=== PATIENT | female | born 1930 | race Caucasian/White ===

== ENCOUNTER 2017-02-14 17:39 | Inpatient (IN) | payer MEDICARE, MEDICAID ==
[~2017-02-14] VITALS: Ht 152.4 cm; Wt 41.9 kg
[2017-02-14 19:03] LABS: BASOPHILS % 0.8 % (0.0-2.0); EOSINOPHILS % 2.7 % (0.0-5.0); HEMATOCRIT. 39.9 % (36.0-48.0); HEMOGLOBIN. 13.6 g/dL (12.0-16.0); LYMPHOCYTES % 17.9 % (20.0-50.0); MEAN CORPUSCULAR HEMOGLOBIN 30.8 pg (28.0-32.0); MEAN CORPUSCULAR VOLUME 90.6 fL (81.0-99.0); MEAN PLATELET VOLUME 9.2 fl (7.4-10.4); MONOCYTES % 9.2 % (2.0-8.0); NEUTROPHILS % 69.4 % (40.0-76.0); PLATELET 142 x1000/uL (130-400); RED CELL DISTRIBUTION WIDTH 14.4 % (11.6-14.6)
[2017-02-14 19:03] LABS: CLARITY URINE CLEAR (CLEAR); COLOR URINE YELLOW (YELLOW); GLUCOSE URINE NEGATIVE (NEGATIVE); KETONES URINE NEGATIVE (NEGATIVE); LEUKOCYTE ESTERASE URINE 1+ (NEGATIVE); NITRITE URINE NEGATIVE (NEGATIVE); OCCULT BLOOD URINE NEGATIVE (NEGATIVE); PH URINE 6.5 (4.5-8.0); PROTEIN URINE NEGATIVE (NEGATIVE); SPECIFIC GRAVITY URINE 1.008 (1.005-1.030)
[2017-02-14 19:05] LABS: INR 1.2; PROTHROMBIN TIME 12.3 sec (9.4-11.6)
[2017-02-14 19:08] LABS: CARBON DIOXIDE 33 mEq/L (21-32); CHLORIDE 97 mEq/L (98-107)
[2017-02-14 19:14] LABS: TROPONIN I < 0.02 ng/mL (0.00-0.04)
[2017-02-14] MEDS ORDERED: CEFTRIAXONE 1 G PREMIX 50 ML IV ONE (20:00)
[2017-02-14] MEDS ORDERED: ASPIRIN 81MG TABLET PO ONE (20:00)
[2017-02-14] MEDS ORDERED: SODIUM CHLORIDE 0.9% 1,000 ML IV SCH (20:25)
[2017-02-14 23:26] VITALS: BP 127/68
[2017-02-14 23:44] VITALS: BP 127/68
[2017-02-15] VITALS: BP 127/68
[2017-02-15] MEDS ORDERED: MAGNESIUM/ALUMINUM HYDROXIDE/SIMETHICONE 30ML UDC PO PRN (00:30)
[2017-02-15] MEDS ORDERED: DIPHENHYDRAMINE 50MG/ML VIAL IV PRN (00:30)
[2017-02-15] MEDS ORDERED: ONDANSETRON HCL 4MG/2ML VIAL IV PRN (00:30)
[2017-02-15] MEDS ORDERED: ENOXAPARIN 40MG/0.4ML SYR SUBCUT SCH (00:30)
[2017-02-15] MEDS ORDERED: ACETAMINOPHEN 325MG TABLET PO PRN (00:30)
[2017-02-15 04:00] VITALS: BP 108/55
[2017-02-15] MEDS: SODIUM CHLORIDE 0.9% INJ 3ML FLUSH IVF SCH ×3 (06:11→21:44)
[2017-02-15 07:25] LABS: HDL CHOLESTEROL 68 mg/dL (40-59); LDL CHOLESTEROL 32 mg/dL (5-100); T4 FREE 1.24 ng/dL (0.76-1.46); TROPONIN I < 0.02 ng/mL (0.00-0.04)
[2017-02-15 08:00] VITALS: BP 100/56
[2017-02-15] MEDS: ENOXAPARIN 30MG/0.3ML SYR SUBCUT SCH (08:48)
[2017-02-15 12:00] VITALS: BP 104/49
[2017-02-15 16:00] VITALS: BP 122/70
[2017-02-15 20:00] VITALS: BP 102/53
[2017-02-16] VITALS: BP 99/54
[2017-02-16 04:00] VITALS: BP_SYST 148; BP_SYST 95; BP_DIAS 51; BP_DIAS 83
[2017-02-16] MEDS: SODIUM CHLORIDE 0.9% INJ 3ML FLUSH IVF SCH ×2 (06:33→14:00)
[2017-02-16] MEDS ORDERED: REGADENOSON 0.4 MG/5 ML IV ONE (07:15)
[2017-02-16 08:00] VITALS: BP 118/75
[2017-02-16] MEDS: ENOXAPARIN 30MG/0.3ML SYR SUBCUT SCH (08:29)
[2017-02-16] MEDS ORDERED: ASPIRIN 81MG TABLET PO SCH (09:00)
[2017-02-16 12:00] VITALS: BP 95/39
[2017-02-16 16:00] VITALS: BP 115/65
[2017-02-16 17:31] VITALS: BP 115/65
[2017-02-16] MEDS ORDERED: ATORVASTATIN CALCIUM 20MG TABLET PO SCH (21:00)
== END 2017-02-16 20:30 | disposition home or self-care (01) | DRG 243 ==
LOC: ER 19:57 → 5WST 20:28 → ENRESERV 21:34
PROVIDERS: ADMIT Internal Medicine; ATTEND Internal Medicine
DX: K21.9 Gastro-esophageal reflux disease without esophagitis (principal); I50.32 Chronic diastolic (congestive) heart failure; N39.0 Urinary tract infection, site not specified; R07.89 Other chest pain; I25.2 Old myocardial infarction; I10 Essential (primary) hypertension; I25.10 Atherosclerotic heart disease of native coronary artery without angina pectoris; E78.5 Hyperlipidemia, unspecified; M19.90 Unspecified osteoarthritis, unspecified site; Z90.49 Acquired absence of other specified parts of digestive tract; E87.1 Hypo-osmolality and hyponatremia
CPT/HCPCS: 36415; 70450; 71010; 80053; 80061; 81001; 83880; 84439; 84443; 84484; 85025; 85610; 93005; 93970; 96361; 96365; 99291; J0696; J1650; J7030

== ENCOUNTER 2017-07-02 14:35 | Emergency (ER) | payer MEDICARE, MEDICAID ==
[~2017-07-02] VITALS: Ht 154.9 cm; Wt 50.0 kg
[2017-07-02] MEDS ORDERED: ACETAMINOPHEN 325MG TABLET PO ONE (15:00)
[2017-07-02 15:18] LABS: HEMATOCRIT. 39.6 % (36.0-48.0); HEMOGLOBIN. 13.3 g/dL (12.0-16.0); MEAN CORPUSCULAR HEMOGLOBIN 30.8 pg (28.0-32.0); MEAN PLATELET VOLUME 8.8 fl (7.4-10.4); PLATELET 106 x1000/uL (130-400); RED CELL DISTRIBUTION WIDTH 13.3 % (11.6-14.6)
[2017-07-02 15:19] LABS: CHLORIDE 105 mEq/L (98-107)
[2017-07-02 15:20] LABS: INR 1.1; PROTHROMBIN TIME 11.3 sec (9.4-11.6)
[2017-07-02 15:27] LABS: CARBON DIOXIDE 31 mEq/L (21-32)
[2017-07-02 16:10] LABS: ATYPICAL LYMPHOCYTES 2; PLATELET ESTIMATE DECREASED
[2017-07-02 18:08] LABS: CLARITY URINE CLEAR (CLEAR); COLOR URINE YELLOW (YELLOW); KETONES URINE 1+ (NEGATIVE); LEUKOCYTE ESTERASE URINE NEGATIVE (NEGATIVE); NITRITE URINE NEGATIVE (NEGATIVE); OCCULT BLOOD URINE NEGATIVE (NEGATIVE); PROTEIN URINE 2+ (NEGATIVE); UROBILINOGEN URINE 0.2 E.U./dL (0.2-1.0)
[2017-07-02 19:38] VITALS: BP 129/59
== END 2017-07-02 19:45 | disposition home or self-care (01) ==
LOC: ER 14:46
DX: M25.561 Pain in right knee (principal); M25.562 Pain in left knee; I25.2 Old myocardial infarction; I48.91 Unspecified atrial fibrillation; I25.10 Atherosclerotic heart disease of native coronary artery without angina pectoris; I67.82 Cerebral ischemia; W18.39XA Other fall on same level, initial encounter; Y93.89 Activity, other specified; Y92.89 Other specified places as the place of occurrence of the external cause; Y99.8 Other external cause status
CPT/HCPCS: 36415; 70450; 71045; 73562; 80053; 81001; 84484; 85025; 85610; 93005; 99285

== ENCOUNTER 2019-02-04 05:57 | Inpatient (IN) | payer MEDICARE, MEDICAID ==
[2019-02-04] VITALS (8 sets, daily range): BP systolic 93–121; BP diastolic 55–69
[~2019-02-04] VITALS: Ht 149.9 cm; Wt 46.1 kg
[~2019-02-04 05:57] MED LIST: ALBU6.7H INH; FLUT1DIS3 IH; P50 PO
[2019-02-04] MEDS ORDERED: VANCOMYCIN 1 G PREMIX 200 ML IV ONE (06:30)
[2019-02-04] MEDS ORDERED: PIPERACILLIN/TAZ 3.375G PREMIX 50 ML IV ONE (06:30)
[2019-02-04] MEDS ORDERED: SODIUM CHLORIDE 0.9% 1000ML BAG (SEPSIS BOLUS) IV ONE (06:30)
[2019-02-04] MEDS ORDERED: ACETAMINOPHEN 325MG TABLET PO ONE (06:45)
[2019-02-04 06:50] LABS: BASOPHILS % 0.5 % (0.0-2.0); EOSINOPHILS % 0.2 % (0.0-5.0); HEMATOCRIT. 44.5 % (36.0-48.0); HEMOGLOBIN. 15.1 g/dL (12.0-16.0); LYMPHOCYTES % 19.5 % (20.0-50.0); MEAN CORPUSCULAR HEMOGLOBIN 31.2 pg (28.0-32.0); MEAN CORPUSCULAR VOLUME 91.7 fL (81.0-99.0); MEAN PLATELET VOLUME 9.1 fl (7.4-10.4); MONOCYTES % 4.9 % (2.0-8.0); NEUTROPHILS % 74.9 % (40.0-76.0); PLATELET 135 x1000/uL (130-400); RED BLOOD CELL COUNT 4.85 mill/uL (4.2-5.4); RED CELL DISTRIBUTION WIDTH 13.6 % (11.6-14.6)
[2019-02-04 06:54] LABS: PROTHROMBIN TIME 10.3 sec (9.6-11.0)
[2019-02-04 06:55] LABS: CHLORIDE 102 mEq/L (98-107)
[2019-02-04] MEDS ORDERED: ALBUTEROL (0.083%) 2.5MG/3ML NEB HHN STA (06:59)
[2019-02-04] MEDS ORDERED: METHYLPREDNISOLONE SOD SUCC 125 MG/2 ML VIAL IV STA (06:59)
[2019-02-04] MEDS ORDERED: IPRATROPIUM BROMIDE (0.02%) 0.5MG/2.5ML NEB HHN STA (06:59)
[2019-02-04] MEDS ORDERED: ALBUTEROL (0.5%) 2.5MG/0.5ML NEB HHN ONE (07:12)
[2019-02-04] MEDS ORDERED: DILTIAZEM HCL 5MG/ML 5ML VIAL IV ONE (07:45)
[2019-02-04 08:55] LABS: CLARITY URINE CLEAR (CLEAR); COLOR URINE YELLOW (YELLOW); KETONES URINE 1+ (NEGATIVE); LEUKOCYTE ESTERASE URINE NEGATIVE (NEGATIVE); NITRITE URINE NEGATIVE (NEGATIVE); OCCULT BLOOD URINE TRACE (NEGATIVE); PROTEIN URINE NEGATIVE (NEGATIVE); SPECIFIC GRAVITY URINE 1.015 (1.005-1.030); UROBILINOGEN URINE 0.2 E.U./dL (0.2-1.0)
[2019-02-04] MEDS ORDERED: CLONIDINE 0.1MG TABLET PO PRN (10:30)
[2019-02-04] MEDS ORDERED: MAGNESIUM/ALUMINUM HYDROXIDE/SIMETHICONE 30ML UDC PO PRN (10:30)
[2019-02-04] MEDS ORDERED: DIPHENHYDRAMINE 50MG/ML VIAL IV PRN (10:30)
[2019-02-04] MEDS ORDERED: ONDANSETRON HCL 4MG/2ML INJ IV PRN (10:30)
[2019-02-04] MEDS ORDERED: LORAZEPAM 0.5MG TABLET PO PRN (10:30)
[2019-02-04] MEDS ORDERED: IPRATROPIUM/ALBUTEROL 0.5-3(2.5)MG/3ML NEB HHN PRN (10:30)
[2019-02-04] MEDS ORDERED: POTASSIUM CHLORIDE 20MEQ/PACKET PO NR (11:00)
[2019-02-04] MEDS ORDERED: ENOXAPARIN 40MG/0.4ML SYR SUBCUT SCH (11:00)
[2019-02-04] MEDS ORDERED: LEVOFLOXACIN 500MG PREMIX 100 ML IV SCH (12:00)
[2019-02-04] MEDS: ACETAMINOPHEN 325MG TABLET PO PRN (13:49)
[2019-02-04] MEDS: IPRATROPIUM/ALBUTEROL 0.5-3(2.5)MG/3ML NEB HHN SCH ×2 (14:15→21:21)
[2019-02-04] MEDS: METHYLPREDNISOLONE SOD SUCC 125 MG/2 ML VIAL IV SCH ×2 (14:31→22:04)
[2019-02-04] MEDS: SODIUM CHLORIDE 0.9% INJ 3ML FLUSH IVF SCH ×2 (14:32→22:06)
[2019-02-04] MEDS ORDERED: CYANOCOBALAMIN 1000MCG/ML VIAL IM SCH (15:15)
[2019-02-04] MEDS ORDERED: MAGNESIUM 1 G PREMIX 100 ML IV SCH (17:00)
[2019-02-04] MEDS ORDERED: BENZONATATE 100MG CAPSULE PO PRN (17:45)
[2019-02-05] VITALS (12 sets, daily range): BP systolic 106–128; BP diastolic 49–81
[2019-02-05] MEDS: IPRATROPIUM/ALBUTEROL 0.5-3(2.5)MG/3ML NEB HHN SCH ×4 (02:13→20:35)
[2019-02-05] MEDS: METHYLPREDNISOLONE SOD SUCC 125 MG/2 ML VIAL IV SCH ×3 (05:38→21:13)
[2019-02-05] MEDS: SODIUM CHLORIDE 0.9% INJ 3ML FLUSH IVF SCH ×3 (05:39→21:13)
[2019-02-05 06:27] LABS: HEMOGLOBIN. 11.9 g/dL (12.0-16.0); MEAN CORPUSCULAR HEMOGLOBIN 31.1 pg (28.0-32.0); MEAN CORPUSCULAR VOLUME 91.8 fL (81.0-99.0); PLATELET 102 x1000/uL (130-400); RED BLOOD CELL COUNT 3.81 mill/uL (4.2-5.4); RED CELL DISTRIBUTION WIDTH 13.8 % (11.6-14.6)
[2019-02-05 07:46] LABS: CHLORIDE 109 mEq/L (98-107)
[2019-02-05] MEDS: ENOXAPARIN 30MG/0.3ML SYR SUBCUT SCH (09:00)
[2019-02-05] MEDS: LEVOFLOXACIN 250MG PREMIX 50 ML IV SCH (10:28)
[2019-02-05 14:13] LABS: PLATELET ESTIMATE SLIGHTLY DECREASED
[2019-02-06] VITALS (11 sets, daily range): BP systolic 115–139; BP diastolic 58–77
[2019-02-06] MEDS: IPRATROPIUM/ALBUTEROL 0.5-3(2.5)MG/3ML NEB HHN SCH ×3 (03:01→14:48)
[2019-02-06] MEDS: ACETAMINOPHEN 325MG TABLET PO PRN (03:45)
[2019-02-06] MEDS: SODIUM CHLORIDE 0.9% INJ 3ML FLUSH IVF SCH ×2 (05:24→14:39)
[2019-02-06] MEDS: METHYLPREDNISOLONE SOD SUCC 125 MG/2 ML VIAL IV SCH (05:24)
[2019-02-06] MEDS: ENOXAPARIN 30MG/0.3ML SYR SUBCUT SCH (09:29)
[2019-02-06] MEDS: LEVOFLOXACIN 250MG PREMIX 50 ML IV SCH (11:16)
[2019-02-07] MEDS ORDERED: PREDNISONE 10MG TABLET PO SCH (09:00)
[2019-02-07] MEDS ORDERED: LEVOFLOXACIN 250MG TABLET PO SCH (11:00)
[2019-02-07] MEDS ORDERED: ATENOLOL 25MG TABLET PO SCH (13:00)
== END 2019-02-06 19:15 | DRG 189 ==
LOC: ER 05:57 → 5EST 07:45 → ENRESERV 08:00
PROVIDERS: ADMIT Internal Medicine; ATTEND Internal Medicine
DX: J96.01 Acute respiratory failure with hypoxia (principal); J44.1 Chronic obstructive pulmonary disease with (acute) exacerbation; J84.9 Interstitial pulmonary disease, unspecified; I48.0 Paroxysmal atrial fibrillation; E78.5 Hyperlipidemia, unspecified; F03.90 Unspecified dementia, unspecified severity, without behavioral disturbance, psychotic disturbance, mood disturbance, and anxiety; I10 Essential (primary) hypertension; I25.10 Atherosclerotic heart disease of native coronary artery without angina pectoris; E53.8 Deficiency of other specified B group vitamins; T38.0X5A Adverse effect of glucocorticoids and synthetic analogues, initial encounter; I08.3 Combined rheumatic disorders of mitral, aortic and tricuspid valves; M19.90 Unspecified osteoarthritis, unspecified site; Y92.89 Other specified places as the place of occurrence of the external cause; I25.2 Old myocardial infarction; Z90.49 Acquired absence of other specified parts of digestive tract; Z79.899 Other long term (current) drug therapy; Z79.82 Long term (current) use of aspirin
CPT/HCPCS: 36415; 71045; 80048; 81003; 83605; 83735; 83880; 84145; 84484; 93005; 94640; 99291; J1650; J1956; J2543; J2930; J3370; J3420; J3475; J3490; J7030; J7611; J7620

== ENCOUNTER 2019-02-18 21:17 | Inpatient (IN) | payer MEDICARE, MEDICAID ==
[~2019-02-18] VITALS: Ht 149.9 cm; Wt 43.1 kg
[2019-02-18 20:34] VITALS: BP 138/69
[2019-02-18] MEDS ORDERED: ONDANSETRON HCL 4MG/2ML INJ IV PRN (21:30)
[2019-02-18] MEDS ORDERED: CLONIDINE 0.1MG TABLET PO PRN (21:30)
[2019-02-18] MEDS ORDERED: ACETAMINOPHEN 325MG TABLET PO PRN (21:30)
[2019-02-18] MEDS ORDERED: GUAIFENESIN 200MG/10ML SUGAR FREE UDC PO PRN (21:30)
[2019-02-18] MEDS ORDERED: DIPHENHYDRAMINE 50MG/ML VIAL IV PRN (21:30)
[2019-02-18] MEDS ORDERED: LORAZEPAM 0.5MG TABLET PO PRN (21:30)
[2019-02-18] MEDS ORDERED: MAGNESIUM/ALUMINUM HYDROXIDE/SIMETHICONE 30ML UDC PO PRN (21:30)
[2019-02-18] MEDS ORDERED: IPRATROPIUM/ALBUTEROL 0.5-3(2.5)MG/3ML NEB HHN PRN (21:30)
[2019-02-18 22:18] VITALS: BP 138/69
[2019-02-18] MEDS ORDERED: ATEN-42 PO (22:31)
[2019-02-18] MEDS ORDERED: DIPH25CA83 PO (22:32)
[2019-02-18] MEDS ORDERED: ACET-2853 PO (22:33)
[2019-02-18] MEDS ORDERED: BENZ100C86 PO (22:34)
[2019-02-18] MEDS ORDERED: CLON0.1T PO (22:36)
[2019-02-18] MEDS ORDERED: IPRA3AMP9 HHN (22:37)
[2019-02-18 23:16] LABS: BASOPHILS % 0.4 % (0.0-2.0); EOSINOPHILS % 0.5 % (0.0-5.0); HEMATOCRIT. 35.5 % (36.0-48.0); HEMOGLOBIN. 12.3 g/dL (12.0-16.0); LYMPHOCYTES % 9.1 % (20.0-50.0); MEAN CORPUSCULAR HEMOGLOBIN 31.8 pg (28.0-32.0); MEAN CORPUSCULAR VOLUME 91.8 fL (81.0-99.0); MEAN PLATELET VOLUME 8.3 fl (7.4-10.4); MONOCYTES % 5.2 % (2.0-8.0); NEUTROPHILS % 84.8 % (40.0-76.0); PLATELET 141 x1000/uL (130-400); RED BLOOD CELL COUNT 3.87 mill/uL (4.2-5.4); RED CELL DISTRIBUTION WIDTH 14.2 % (11.6-14.6)
[2019-02-18 23:31] LABS: CHLORIDE 109 mEq/L (98-107)
[2019-02-19] VITALS: BP 146/70
[2019-02-19 00:07] LABS: VITAMIN B12 SERUM 875 pg/mL (211-911)
[2019-02-19] MEDS: IPRATROPIUM/ALBUTEROL 0.5-3(2.5)MG/3ML NEB HHN SCH ×3 (01:26→16:19)
[2019-02-19 04:00] VITALS: BP 131/74
[2019-02-19] MEDS: SODIUM CHLORIDE 0.9% INJ 3ML FLUSH IVF SCH ×2 (05:50→14:14)
[2019-02-19 06:37] LABS: CLARITY URINE CLEAR (CLEAR); COLOR URINE YELLOW (YELLOW); KETONES URINE NEGATIVE (NEGATIVE); LEUKOCYTE ESTERASE URINE TRACE (NEGATIVE); NITRITE URINE NEGATIVE (NEGATIVE); OCCULT BLOOD URINE NEGATIVE (NEGATIVE); PROTEIN URINE NEGATIVE (NEGATIVE)
[2019-02-19 08:00] VITALS: BP 152/71
[2019-02-19] MEDS: ATENOLOL 25MG TABLET PO SCH (08:56)
[2019-02-19 12:00] VITALS: BP 110/48
[2019-02-19 16:00] VITALS: BP 104/56
[2019-02-19 20:00] VITALS: BP_SYST 108; BP_SYST 113; BP_DIAS 43; BP_DIAS 71
[2019-02-20] VITALS (7 sets, daily range): BP systolic 107–147; BP diastolic 48–85
[2019-02-20] MEDS: IPRATROPIUM/ALBUTEROL 0.5-3(2.5)MG/3ML NEB HHN SCH ×4 (00:53→19:57)
[2019-02-20] MEDS: SODIUM CHLORIDE 0.9% INJ 3ML FLUSH IVF SCH ×4 (06:08→22:22)
[2019-02-20] MEDS: ATENOLOL 25MG TABLET PO SCH (09:14)
[2019-02-21] VITALS: BP 126/60
[2019-02-21 04:00] VITALS: BP 122/78
[2019-02-21] MEDS: IPRATROPIUM/ALBUTEROL 0.5-3(2.5)MG/3ML NEB HHN SCH ×3 (04:18→15:59)
[2019-02-21] MEDS: SODIUM CHLORIDE 0.9% INJ 3ML FLUSH IVF SCH ×2 (07:04→13:24)
[2019-02-21 07:05] LABS: CHLORIDE 108 mEq/L (98-107)
[2019-02-21 07:07] LABS: BASOPHILS % 0.8 % (0.0-2.0); EOSINOPHILS % 2.8 % (0.0-5.0); HEMATOCRIT. 39.1 % (36.0-48.0); HEMOGLOBIN. 13.2 g/dL (12.0-16.0); LYMPHOCYTES % 22.7 % (20.0-50.0); MEAN CORPUSCULAR HEMOGLOBIN 31.3 pg (28.0-32.0); MEAN CORPUSCULAR VOLUME 92.6 fL (81.0-99.0); MEAN PLATELET VOLUME 8.5 fl (7.4-10.4); MONOCYTES % 8.2 % (2.0-8.0); NEUTROPHILS % 65.5 % (40.0-76.0); PLATELET 151 x1000/uL (130-400); RED BLOOD CELL COUNT 4.23 mill/uL (4.2-5.4); RED CELL DISTRIBUTION WIDTH 14.5 % (11.6-14.6)
[2019-02-21 07:11] LABS: PHOSPHORUS 3.2 mg/dL (2.5-4.9)
[2019-02-21 07:14] LABS: T4 FREE 1.13 ng/dL (0.76-1.46)
[2019-02-21 08:00] VITALS: BP 120/56
[2019-02-21] MEDS ORDERED: ATENOLOL 25MG TABLET PO SCH (09:00)
[2019-02-21 12:00] VITALS: BP 114/45
[2019-02-21 16:00] VITALS: BP 104/45
[2019-02-21 20:00] VITALS: BP 113/56
== END 2019-02-21 21:55 | DRG 74 ==
LOC: 5WST 21:17
PROVIDERS: ADMIT Internal Medicine; ATTEND Internal Medicine
DX: G90.8 Other disorders of autonomic nervous system (principal); N39.0 Urinary tract infection, site not specified; Z68.1 Body mass index [BMI] 19.9 or less, adult; E44.0 Moderate protein-calorie malnutrition; R62.7 Adult failure to thrive; F03.90 Unspecified dementia, unspecified severity, without behavioral disturbance, psychotic disturbance, mood disturbance, and anxiety; I10 Essential (primary) hypertension; I25.10 Atherosclerotic heart disease of native coronary artery without angina pectoris; I48.0 Paroxysmal atrial fibrillation; J44.9 Chronic obstructive pulmonary disease, unspecified; M19.90 Unspecified osteoarthritis, unspecified site; E53.8 Deficiency of other specified B group vitamins; Z90.49 Acquired absence of other specified parts of digestive tract
CPT/HCPCS: 36415; 71045; 81003; 82607; 83735; 84100; 84439; 84443; 93005; 94640; J7620

== ENCOUNTER 2019-05-07 01:44 | Emergency (ER) | payer MEDICARE, MEDICAID ==
[~2019-05-07] VITALS: Ht 137.2 cm; Wt 40.0 kg
[~2019-05-07 01:44] MED LIST changes: +ACET-2853 PO; -ALBU6.7H INH; +ATEN-42 PO; +BENZ100C86 PO; +CLON0.1T PO; +DIPH25CA83 PO; -FLUT1DIS3 IH; +IPRA3AMP9 HHN; -P50 PO
[2019-05-07] MEDS ORDERED: SODIUM CHLORIDE 0.9% 1,000 ML IV ONE (02:07)
[2019-05-07] MEDS ORDERED: ONDANSETRON HCL 4MG/2ML INJ IV STA (02:07)
[2019-05-07] MEDS ORDERED: MORPHINE SULFATE 4 MG/ML CPJ (NOT FOR IM USE) IV STA (02:07)
[2019-05-07 02:51] LABS: CHLORIDE 105 mEq/L (98-107)
[2019-05-07 02:53] LABS: BASOPHILS % 1.1 % (0.0-2.0); EOSINOPHILS % 3.9 % (0.0-5.0); HEMATOCRIT. 40.7 % (36.0-48.0); HEMOGLOBIN. 13.8 g/dL (12.0-16.0); LYMPHOCYTES % 22.7 % (20.0-50.0); MEAN CORPUSCULAR HEMOGLOBIN 31.2 pg (28.0-32.0); MEAN CORPUSCULAR VOLUME 91.9 fL (81.0-99.0); MEAN PLATELET VOLUME 8.9 fl (7.4-10.4); MONOCYTES % 8.6 % (2.0-8.0); NEUTROPHILS % 63.7 % (40.0-76.0); PLATELET 146 x1000/uL (130-400); RED BLOOD CELL COUNT 4.43 mill/uL (4.2-5.4); RED CELL DISTRIBUTION WIDTH 13.4 % (11.6-14.6)
[2019-05-07 05:11] LABS: CLARITY URINE CLEAR (CLEAR); COLOR URINE YELLOW (YELLOW); KETONES URINE NEGATIVE (NEGATIVE); LEUKOCYTE ESTERASE URINE TRACE (NEGATIVE); NITRITE URINE NEGATIVE (NEGATIVE); OCCULT BLOOD URINE NEGATIVE (NEGATIVE); PROTEIN URINE NEGATIVE (NEGATIVE); SPECIFIC GRAVITY URINE 1.013 (1.005-1.030)
[2019-05-07 08:35] VITALS: BP 132/58
== END 2019-05-07 08:39 | disposition home or self-care (01) ==
LOC: ER 01:44
DX: S30.1XXA Contusion of abdominal wall, initial encounter (principal); W18.39XA Other fall on same level, initial encounter; Y93.89 Activity, other specified; Y92.89 Other specified places as the place of occurrence of the external cause; Y99.8 Other external cause status; I48.91 Unspecified atrial fibrillation; J45.909 Unspecified asthma, uncomplicated; I10 Essential (primary) hypertension; I25.2 Old myocardial infarction; R41.82 Altered mental status, unspecified; Z90.49 Acquired absence of other specified parts of digestive tract; Z79.899 Other long term (current) drug therapy
CPT/HCPCS: 36415; 70450; 71045; 74176; 80053; 81003; 84484; 85025; 86850; 86900; 86901; 93005; 96374; 99284; J2405; J7030

== ENCOUNTER 2019-06-14 15:00 | Emergency (ER) | payer MEDICARE, MEDICAID ==
[~2019-06-14 15:00] MED LIST changes: -ACET-2853 PO; +ACET650T37 PO
[2019-06-14 17:44] LABS: BASOPHILS % 0.6 % (0.0-2.0); EOSINOPHILS % 3.8 % (0.0-5.0); HEMATOCRIT. 40.4 % (36.0-48.0); HEMOGLOBIN. 13.6 g/dL (12.0-16.0); LYMPHOCYTES % 18.4 % (20.0-50.0); MEAN CORPUSCULAR HEMOGLOBIN 30.7 pg (28.0-32.0); MEAN CORPUSCULAR VOLUME 90.9 fL (81.0-99.0); MEAN PLATELET VOLUME 8.8 fl (7.4-10.4); MONOCYTES % 10.3 % (2.0-8.0); NEUTROPHILS % 66.9 % (40.0-76.0); PLATELET 183 x1000/uL (130-400); RED BLOOD CELL COUNT 4.44 mill/uL (4.2-5.4); RED CELL DISTRIBUTION WIDTH 13.5 % (11.6-14.6)
[2019-06-14 17:49] LABS: CHLORIDE 107 mEq/L (98-107)
[2019-06-14 22:23] VITALS: BP 137/72
== END 2019-06-14 22:28 ==
LOC: ER 15:00
DX: R91.8 Other nonspecific abnormal finding of lung field (principal); J44.9 Chronic obstructive pulmonary disease, unspecified; I48.91 Unspecified atrial fibrillation; I10 Essential (primary) hypertension; F03.90 Unspecified dementia, unspecified severity, without behavioral disturbance, psychotic disturbance, mood disturbance, and anxiety; Z79.01 Long term (current) use of anticoagulants
CPT/HCPCS: 36415; 71045; 80053; 83880; 84484; 85025; 93005; 99284